=== PATIENT | male | born 1995 | race Caucasian/White ===

== ENCOUNTER 2018-12-04 02:48 | Emergency (ER) | payer OTHER, MEDICAID, SELFPAY ==
[2018-12-04 02:49] VITALS: BP 145/92; PULSE 111; RESP 16; TEMP 36.8; O2SAT 100; BMI 24.2
--- NOTE | 2018-12-04 02:51 | RAD_ITS ---
HISTORY: HISTORY: FFallRAD-EXT/JTPT HIT HAND ON WALL PAIN 5TH METACARPAL LT HANDPLEASE OMIT 1ST IMAGE XR Hand Min 3 Views COMPARISON: None FINDINGS: # of images incl. paperwork: 3 3 views of the hand. Findings: Perhaps best demonstrated on the lateral image is an avulsion fracture off the dorsal proximal aspect of the fifth distal phalanx, at the insertion of the extensor tendon.. Trace soft tissue swelling is present over the region of the fracture. No significant joint space narrowing. No radiopaque foreign body. RAD/Hand Min 3 Views IMPRESSION: Avulsion fracture on the dorsal proximal aspect of the fifth distal phalanx, at the insertion of the extensor tendon. at 0324 Reported and signed by: Minh Spencer MD Electronically Signed: Minh Spencer MD at 3:23 EDT Tel , Service support ,
[2018-12-04] MEDS: Naproxen 500 MG Tablet PO (02:53)
--- NOTE | 2018-12-04 02:53 | ED.VISSUMM ---
- ER Visit Summary Date of Service: 12/04/18 Chief Complaint: Left fifth finger pain History of Present Illness: The patient is a 22 M who has pain on the small finger of his left hand. He punched a wall today. He states it started swelling but no swelling went down. He still has pain of the distal part of the fifth finger. He has no fifth MCP pain. He took nothing for this at home. Pain is worse with movement. He denies any previous surgeries or fractures to this finger. Physical Examination: Vitals are reviewed. Left hand reveals tenderness to the distal fifth finger. There is ecchymosis distally over the DIP joint. There is no MCP pain. He does have painful range of motion. Test Results: X-rays reveal a fracture on the proximal portion of the distal left fifth phalanx Emergency Department Course and Treatment: Patient does have a fracture of his finger. He will be placed in an AlumaFoam splint. Naproxen and ice at home. We will follow-up with orthopedics Treatment Plan: [] Disposition: Discharge Impression: Left fifth finger distal phalanx fracture, closed This note was generated with [employer] dictation software. It may contain incorrect words, spelling, and punctuation that were not noted in review of the chart prior to signing ED Disposition - Plan for ED Patient: Referrals: Talha Kaminski DO [Primary Care Provider] -
--- NOTE | 2018-12-04 03:12 | ED.DEP ---
ED Disposition - Plan for ED Patient: Disposition: Home or Assisted Living Instructions: FRACTURE, Finger (Closed) Prescriptions: Naproxen [Naprosyn] 500 mg PO BID PRN #20 tab Prescription Printed Referrals: Talha Kaminski DO [Primary Care Provider] - Gary Martinez MD [STAFF PHYSICIAN] -
[2018-12-04 03:23] VITALS: RESP 16
== END 2018-12-04 03:23 | disposition home or self-care (01) ==
PROVIDERS: Emergency Provider Emergency Medicine; Family Provider Family Medicine; PCP Family Medicine
DX: S62.637A Displaced fracture of distal phalanx of left little finger, initial encounter for closed fracture (principal); W22.8XXA Striking against or struck by other objects, initial encounter; Y93.89 Activity, other specified; Y92.9 Unspecified place or not applicable; Z72.0 Tobacco use
CPT/HCPCS: 73130; 99283